=== PATIENT | female | born 1985 | race Caucasian/White ===

== ENCOUNTER 2017-04-24 17:58 | Emergency (ER) | payer BC ==
[~2017-04-24] VITALS: Ht 172.7 cm; Wt 97.5 kg
[~2017-04-24 17:58] MED LIST: ACET325 PO; ACET500 PO; ACET650SUP PR; ADVIL; ALPR.5 PO; AMOX500 PO; AMPDEX10CR PO; AMPDEX5 PO; BENZ100A PO; CARI350 PO; CIPR250 PO; CIPR500 PO; CONEST.625 PO; CONJUGATED ESTROGENS; CRUTCH3 UD; CRUTCH4 USE; CYCL10 PO; DIAZ2 PO; DIAZ5 PO; DIVA500EC PO; DOC250 PO; DOCU100 PO; DOXY100 PO; ESOM20; ESTR.1TPBW TOP; ESTR2 PO; ESTRADIOL PO; ESTROGEN; FISH1000 PO; FLUC150A PO; FLUO10 PO; FLUO20 PO; FLUP1 PO; GABA300 PO; GEODON; HYDACE5 PO; HYDMOR2 PO; HYDMOR4 PO; HYDPAM50 PO; HYDR1TAB94 PO; IBUP200 PO; IBUP400 PO; IBUP600 PO; IBUP800 PO; LAMO100 PO; LAMO25 PO; LAMO50 PO; LEVO750 PO; LORA1 PO; LORA2 PO; MEDR150I; META800 PO; METCAR500 PO; METPRE4DP PO; METR500 PO; MULVITA PO; MULVITMIND PO; MULVITMINE; Mobic15 MG PO; NAPR500 PO; NITR100CA PO; ONDA4 PO; ONDA4ODT MM; ORACONA PO; OXYACE5T PO; OXYACE7.5T PO; PRAZ5 PO; PROM25 PO; PROM25S PR; PROZAC; PROZAC 40 MG PO; Pyridium200 MG PO; RXCYCL10 PO; RXHYDMOR2 PO; RXOXYACE PO; RXPROM25S PR; RXTRAM50 PO; Robaxin-750750 MG PO; SERT50 PO; SULTRIDS PO; TRAACE PO; TRAM50 PO; UNISOM PO; Ultram50 MG PO; VARE1 PO; Vitamin A and D TOP; YASMIN; ZANAX; ZOLP10 PO; ZOLP5 PO; [UNRECOGNIZED DRUG - OTHER]; [UNRECOGNIZED DRUG - OTHER]; [UNRECOGNIZED DRUG - REMARK]; [UNRECOGNIZED DRUG - REMARK]
[2017-04-24] MEDS ORDERED: Crutch1 EACH MISC (19:18)
[2017-04-24] MEDS ORDERED: IBUP800 PO (19:18)
[2017-04-24] MEDS ORDERED: Ultram50 MG PO (19:18)
[2017-08-22] MEDS ORDERED: Ultram50 MG PO (17:59)
== END 2017-04-24 19:40 | disposition home or self-care (01) ==
LOC: ER 17:58
DX: S89.91XA Unspecified injury of right lower leg, initial encounter (principal); F41.9 Anxiety disorder, unspecified; Z91.018 Allergy to other foods; Z88.8 Allergy status to other drugs, medicaments and biological substances; Z91.040 Latex allergy status; Z79.899 Other long term (current) drug therapy; Z90.710 Acquired absence of both cervix and uterus; Z90.89 Acquired absence of other organs; W18.30XA Fall on same level, unspecified, initial encounter
CPT/HCPCS: 73562-RT; 96374; 96375; 99283; J1170; J1885; J2405

== ENCOUNTER 2018-05-21 17:11 | Emergency (ER) | payer BC ==
[~2018-05-21] VITALS: Ht 172.7 cm; Wt 95.2 kg
[~2018-05-21 17:11] MED LIST changes: +Crutch1 EACH MISC
[2018-05-21] MEDS ORDERED: Tylenol325 MG PO (18:28)
[2018-05-21] MEDS ORDERED: Ultram50 MG PO (18:46)
== END 2018-05-21 18:50 | disposition home or self-care (01) ==
LOC: ER 17:11
DX: M25.561 Pain in right knee (principal); Z88.8 Allergy status to other drugs, medicaments and biological substances; Z91.040 Latex allergy status; F17.210 Nicotine dependence, cigarettes, uncomplicated
CPT/HCPCS: 73564; 99283-25

== ENCOUNTER → 2023-04-07 | Outpatient (CLI) | payer BC ==
[~2023-04-07] MED LIST changes: +Tylenol325 MG PO
[2023-04-10 09:51] LABS: HEPATITIS B SURFACE ANTIBODY 14.66 IU/L
== END ==
LOC: LAB 17:48 → LAB SHORT 17:48
PROVIDERS: Family Medicine
DX: Z11.59 Encounter for screening for other viral diseases (principal)

== ENCOUNTER → 2023-06-14 | Outpatient (CLI) | payer BC | LOC: LAB SHORT 17:23 → LAB 17:23 | DX: N39.0 Urinary tract infection, site not specified (principal) | CPT/HCPCS: 87086 ==

== ENCOUNTER → 2024-09-25 | Outpatient (CLI) | payer OTHER ==
[~2024-09-25] MED LIST changes: +VENL25 PO
[2024-09-25 15:05] LABS: Mean Corpuscular HGB Conc 34.1 g/dL (31.5-36.5); Mean Corpuscular Volume 85 fL (80-100); Mean Platelet Volume 10.4 fL (9.1-12.4); Platelet Count 323 K/mm3 (150-400); RDW Coefficient Variation 12.9 % (11.7-14.2); RDW Standard Deviation 39.3 fL (35.1-46.3); Red Blood Cell Count 4.82 M/mm3 (3.80-5.20); White Blood Cell Count 7.96 K/mm3 (4.00-11.30)
[2024-09-25 15:18] LABS: Albumin, Blood 3.5 g/dL (3.4-5.0); Albumin/Globulin Ratio 0.9 (0.8-1.8); Bilirubin, Total 0.4 mg/dL (0.1-1.0); Bun/Creatinine Ratio 12.8 (12.0-20.0); Calcium, Blood 9.5 mg/dL (8.5-10.1); Creatinine, Blood 0.47 mg/dL (0.40-1.00); Globulin, Blood 3.7 g/dL (2.2-4.0); Potassium, Blood 3.8 mmol/L (3.5-5.5); Total Protein, Blood 7.2 g/dL (6.4-8.2)
[2024-09-25 16:44] LABS: BAND PERCENT MAN 1 % (0-8); BASOPHILS ABSOLUTE MAN 0.15 K/mm3 (0.00-0.23); BASOPHILS PERCENT MAN 2 % (0-2); EOSINOPHILS ABSOLUTE MAN 0.15 K/mm3 (0.00-0.68); EOSINOPHILS PERCENT MAN 2 % (0-6); LYMPHOCYTES % ATYPICAL MANUAL 1 % (0-0); LYMPHOCYTES PERCENT MAN 28 % (21-46); MONOCYTES ABSOLUTE MAN 0.63 K/mm3 (0.16-1.47); MONOCYTES PERCENT MAN 8 % (4-13); MYELOCYTE ABSOLUTE MAN 0.07 K/mm3 (0.00-0.00); MYELOCYTE PERCENT MAN 1 % (0-0); NEUTROPHILS ABSOLUTE MAN 4.61 K/mm3 (1.96-9.15); SEG NEUTROPHILS PERCENT MAN 57 % (41-73); TOTAL CELLS COUNTED 100
== END ==
LOC: LAB SHORT 13:27 → LAB 13:27
PROVIDERS: Nurse Practitioner
DX: R10.32 Left lower quadrant pain (principal)
CPT/HCPCS: 80053; 85007; 85027

== ENCOUNTER 2024-12-03 17:54 | Emergency (ER) | payer OTHER ==
[~2024-12-03] VITALS: Ht 165.1 cm; Wt 113.4 kg
[2024-12-03] MEDS ORDERED: Ketorolac Tromethamine 15mg Vial IV ONE (18:05)
[2024-12-03] MEDS ORDERED: Ondansetron HCl 2 MG / ML 2ML Vial IV ONE (18:10)
[2024-12-03] MEDS ORDERED: HYDROmorphone HCl/Pf 1MG SYR IV ONE (18:15)
[2024-12-03] MEDS ORDERED: Metoclopramide HCl 5MG / ML 2ML Vial IV ONE (18:15)
[2024-12-03 18:28] LABS: BASOPHILS ABSOLUTE AUTO 0.03 K/mm3 (0.00-0.23); BASOPHILS PERCENT AUTO 0 % (0-2); EOSINOPHILS ABSOLUTE AUTO 0.28 K/mm3 (0.00-0.68); EOSINOPHILS PERCENT AUTO 3 % (0-6); Hematocrit 48.7 % (33.0-51.0); Hemoglobin 16.5 g/dL (11.5-16.0); IMMATURE GRAN ABSOLUTE AUTO 0.03 K/mm3 (0.00-0.10); IMMATURE GRAN PERCENT AUTO 0 % (0-1); LYMPHOCYTES ABSOLUTE AUTO 2.13 K/mm3 (0.84-5.20); LYMPHOCYTES PERCENT AUTO 25 % (21-46); MONOCYTES ABSOLUTE AUTO 0.49 K/mm3 (0.16-1.47); MONOCYTES PERCENT AUTO 6 % (4-13); Mean Corpuscular HGB Conc 33.9 g/dL (31.5-36.5); Mean Corpuscular Volume 87 fL (80-100); NEUTROPHILS ABSOLUTE AUTO 5.46 K/mm3 (1.96-9.15); NEUTROPHILS PERCENT AUTO 65 % (41-73); NRBC ABSOLUTE 0.00 K/mm3 (0.00-0.02); NRBC Auto 0.0 /100 WBC (0.0-0.2); Platelet Count 286 K/mm3 (150-400); RDW Coefficient Variation 13.0 % (11.7-14.2); RDW Standard Deviation 40.5 fL (35.1-46.3)
[2024-12-03 18:50] LABS: Alanine Aminotransfer (ALT/SGP 134.0 U/L (12-78); Albumin, Blood 3.5 g/dL (3.4-5.0); Albumin/Globulin Ratio 0.9 (0.8-1.8); Anion Gap 4.0 mmol/L (3-11); Aspartate Aminotrans (AST/SGOT 97.0 U/L (12-37); Bilirubin, Total 0.4 mg/dL (0.1-1.0); Blood Urea Nitrogen 9.0 mg/dL (8-24); CO2, Blood 25.0 mmol/L (21-32); Calcium, Blood 9.3 mg/dL (8.5-10.1); Chloride, Blood 110.0 mmol/L (98-108); Creatinine, Blood 0.51 mg/dL (0.40-1.00); Globulin, Blood 4.1 g/dL (2.2-4.0); Glucose, Blood 119.0 mg/dL (70-99); Potassium, Blood 3.9 mmol/L (3.5-5.5); Sodium, Blood 135.0 mmol/L (136-145); Total Protein, Blood 7.6 g/dL (6.4-8.2)
[2024-12-03] MEDS ORDERED: NS 1,000 ML IV SCH (19:55)
[2024-12-03 20:14] LABS: Source, Urine Clean Catch
[2024-12-03 20:17] LABS: Bilirubin, Urine Neg (Neg); Glucose Qualitative, Urine Neg (Neg); Ketones, Urine Neg (Neg); Leukocyte Esterase, Urine Neg (Neg); Protein, Urine 2+ (Neg); Specific Gravity, Urine 1.010 (1.003-1.022); Urobilinogen, Urine NORM (Normal)
[2024-12-03 20:39] LABS: Color, Urine Yellow (P-Yellow)
[2024-12-03 20:41] LABS: Red Blood Cells, Urine 0-2 /hpf (0-2); White Blood Cells, Urine 0-2 /hpf (0-5)
[2024-12-03] MEDS ORDERED: OXAYDO5 M1 PO (20:43)
[2024-12-03] MEDS ORDERED: RX Prepack 6 Tabs Oxycodone 5mg UD ONE (20:50)
[2024-12-03 20:59] VITALS: BP 148/102
== END 2024-12-03 20:55 | disposition home or self-care (01) ==
LOC: ER 17:54
PROVIDERS: Student in an Organized Health Care Education/Training Program
DX: R10.32 Left lower quadrant pain (principal); G89.29 Other chronic pain; K57.30 Diverticulosis of large intestine without perforation or abscess without bleeding; E87.1 Hypo-osmolality and hyponatremia; F17.200 Nicotine dependence, unspecified, uncomplicated; Z90.710 Acquired absence of both cervix and uterus; Z90.49 Acquired absence of other specified parts of digestive tract; Z91.018 Allergy to other foods; Z88.8 Allergy status to other drugs, medicaments and biological substances; Z91.040 Latex allergy status; Z88.6 Allergy status to analgesic agent; Z79.899 Other long term (current) drug therapy
CPT/HCPCS: 74177; 80053; 81001; 83690; 85025; A9270; J1171; J1885; J2405; J2765; J7030; Q9967

== ENCOUNTER 2025-02-04 09:47 | Emergency (ER) | payer OTHER ==
[~2025-02-04] VITALS: Ht 167.6 cm; Wt 113.4 kg
[~2025-02-04 09:47] MED LIST changes: +OXAYDO5 M1 PO
[2025-02-04] MEDS ORDERED: HYDROmorphone HCl/Pf 1MG SYR IV ONE ×2 (10:15→12:45)
[2025-02-04 10:49] LABS: BASOPHILS ABSOLUTE AUTO 0.03 K/mm3 (0.00-0.23); BASOPHILS PERCENT AUTO 0 % (0-2); EOSINOPHILS ABSOLUTE AUTO 0.03 K/mm3 (0.00-0.68); EOSINOPHILS PERCENT AUTO 0 % (0-6); Hematocrit 45.4 % (33.0-51.0); Hemoglobin 15.2 g/dL (11.5-16.0); IMMATURE GRAN ABSOLUTE AUTO 0.05 K/mm3 (0.00-0.10); IMMATURE GRAN PERCENT AUTO 1 % (0-1); LYMPHOCYTES ABSOLUTE AUTO 1.21 K/mm3 (0.84-5.20); LYMPHOCYTES PERCENT AUTO 11 % (21-46); MONOCYTES ABSOLUTE AUTO 0.56 K/mm3 (0.16-1.47); MONOCYTES PERCENT AUTO 5 % (4-13); Mean Corpuscular HGB Conc 33.5 g/dL (31.5-36.5); Mean Corpuscular Volume 86 fL (80-100); NEUTROPHILS ABSOLUTE AUTO 8.70 K/mm3 (1.96-9.15); NEUTROPHILS PERCENT AUTO 82 % (41-73); NRBC ABSOLUTE 0.00 K/mm3 (0.00-0.02); NRBC Auto 0.0 /100 WBC (0.0-0.2); Platelet Count 384 K/mm3 (150-400); RDW Coefficient Variation 13.5 % (11.7-14.2); RDW Standard Deviation 41.8 fL (35.1-46.3)
[2025-02-04] MEDS ORDERED: ESTRADIOL (TWI1 EAC3 TD (10:57)
[2025-02-04] MEDS ORDERED: VENLAFAXINE HCL75 MG PO (10:57)
[2025-02-04 11:11] LABS: Alanine Aminotransfer (ALT/SGP 59.0 U/L (12-78); Albumin, Blood 3.8 g/dL (3.4-5.0); Albumin/Globulin Ratio 1.0 (0.8-1.8); Anion Gap 11.0 mmol/L (3-11); Aspartate Aminotrans (AST/SGOT 44.0 U/L (12-37); Bilirubin, Total 0.7 mg/dL (0.1-1.0); Blood Urea Nitrogen 9.0 mg/dL (8-24); CO2, Blood 24.0 mmol/L (21-32); Calcium, Blood 9.9 mg/dL (8.5-10.1); Chloride, Blood 107.0 mmol/L (98-108); Creatinine, Blood 0.53 mg/dL (0.40-1.00); Globulin, Blood 4.0 g/dL (2.2-4.0); Glucose, Blood 136.0 mg/dL (70-99); Potassium, Blood 4.2 mmol/L (3.5-5.5); Sodium, Blood 138.0 mmol/L (136-145); Total Protein, Blood 7.8 g/dL (6.4-8.2)
[2025-02-04 11:28] LABS: Source, Urine Clean Catch
[2025-02-04 11:33] LABS: Bilirubin, Urine Neg (Neg); Color, Urine Amber (P-Yellow); Glucose Qualitative, Urine Neg (Neg); Ketones, Urine Neg (Neg); Leukocyte Esterase, Urine 1+ (Neg); Protein, Urine 2+ (Neg); Specific Gravity, Urine 1.015 (1.003-1.022); Urobilinogen, Urine 1+ (Normal)
[2025-02-04] MEDS ORDERED: Morphine Sulfate 10 MG/ML 1MLSYR IV ONE (11:35)
[2025-02-04] MEDS ORDERED: MetroNIDAZOLE 500MG/NS 100 ml 100 ML IV ONE (13:05)
[2025-02-04] MEDS ORDERED: Ciprofloxacin 200MG/100ML 100 ML IV ONE (13:05)
[2025-02-04] MEDS ORDERED: Ciprofloxacin 400MG/D5 200ML 200 ML IV STA (13:22)
[2025-02-04] MEDS ORDERED: Atropine/Scopalam/Hyoscam/PB 5 ML UDC PO ONE (14:30)
[2025-02-04] MEDS ORDERED: TIZANIDINE HCL2 M1 PO (14:39)
[2025-02-04 15:00] VITALS: BP 123/110
== END 2025-02-04 15:18 | disposition home or self-care (01) ==
LOC: ER 09:47
PROVIDERS: Student in an Organized Health Care Education/Training Program
DX: K52.9 Noninfective gastroenteritis and colitis, unspecified (principal); R79.89 Other specified abnormal findings of blood chemistry; K57.90 Diverticulosis of intestine, part unspecified, without perforation or abscess without bleeding; F17.200 Nicotine dependence, unspecified, uncomplicated; Z91.018 Allergy to other foods; Z88.8 Allergy status to other drugs, medicaments and biological substances; Z91.040 Latex allergy status; Z88.6 Allergy status to analgesic agent; Z79.899 Other long term (current) drug therapy
CPT/HCPCS: 74177; 80053; 81001; 83605; 83690; 85025; 87086; 96361; 96365-59; 96375; 96376; 99285-25; A9270; J0744; J1171; J2270; J7120; Q9967

== ENCOUNTER 2025-02-07 17:49 | Emergency (ER) | payer OTHER ==
[~2025-02-07] VITALS: Ht 167.6 cm; Wt 113.4 kg
[~2025-02-07 17:49] MED LIST changes: +ESTRADIOL (TWI1 EAC3 TD; +TIZANIDINE HCL2 M1 PO; +VENLAFAXINE HCL75 MG PO
[2025-02-07] MEDS ORDERED: NS 1,000 ML IV SCH (18:20)
[2025-02-07] MEDS ORDERED: Ondansetron HCl 2 MG / ML 2ML Vial IV ONE (18:20)
[2025-02-07 18:25] LABS: BASOPHILS ABSOLUTE AUTO 0.04 K/mm3 (0.00-0.23); BASOPHILS PERCENT AUTO 0 % (0-2); EOSINOPHILS ABSOLUTE AUTO 0.15 K/mm3 (0.00-0.68); EOSINOPHILS PERCENT AUTO 1 % (0-6); Hematocrit 48.2 % (33.0-51.0); Hemoglobin 16.4 g/dL (11.5-16.0); IMMATURE GRAN ABSOLUTE AUTO 0.06 K/mm3 (0.00-0.10); IMMATURE GRAN PERCENT AUTO 1 % (0-1); LYMPHOCYTES ABSOLUTE AUTO 1.52 K/mm3 (0.84-5.20); LYMPHOCYTES PERCENT AUTO 13 % (21-46); MONOCYTES ABSOLUTE AUTO 0.44 K/mm3 (0.16-1.47); MONOCYTES PERCENT AUTO 4 % (4-13); Mean Corpuscular HGB Conc 34.0 g/dL (31.5-36.5); Mean Corpuscular Volume 84 fL (80-100); NEUTROPHILS ABSOLUTE AUTO 9.24 K/mm3 (1.96-9.15); NEUTROPHILS PERCENT AUTO 81 % (41-73); NRBC ABSOLUTE 0.00 K/mm3 (0.00-0.02); NRBC Auto 0.0 /100 WBC (0.0-0.2); Platelet Count 389 K/mm3 (150-400); RDW Coefficient Variation 13.2 % (11.7-14.2); RDW Standard Deviation 40.1 fL (35.1-46.3)
[2025-02-07 19:08] LABS: Alanine Aminotransfer (ALT/SGP 144.0 U/L (12-78); Albumin, Blood 4.1 g/dL (3.4-5.0); Albumin/Globulin Ratio 0.9 (0.8-1.8); Anion Gap 11.0 mmol/L (3-11); Aspartate Aminotrans (AST/SGOT 137.0 U/L (12-37); Bilirubin, Total 1.1 mg/dL (0.1-1.0); Blood Urea Nitrogen 9.0 mg/dL (8-24); CO2, Blood 22.0 mmol/L (21-32); Calcium, Blood 10.1 mg/dL (8.5-10.1); Chloride, Blood 107.0 mmol/L (98-108); Creatinine, Blood 0.47 mg/dL (0.40-1.00); Globulin, Blood 4.6 g/dL (2.2-4.0); Glucose, Blood 99.0 mg/dL (70-99); Potassium, Blood 3.8 mmol/L (3.5-5.5); Sodium, Blood 136.0 mmol/L (136-145); Total Protein, Blood 8.7 g/dL (6.4-8.2)
[2025-02-07] MEDS ORDERED: HYDROmorphone HCl/Pf 1MG SYR IV ONE (19:20)
[2025-02-07 21:27] LABS: Source, Urine Clean Catch
[2025-02-07 21:33] LABS: Bilirubin, Urine Neg (Neg); Glucose Qualitative, Urine Neg (Neg); Ketones, Urine Neg (Neg); Leukocyte Esterase, Urine Neg (Neg); Protein, Urine 1+ (Neg); Specific Gravity, Urine 1.010 (1.003-1.022); Urobilinogen, Urine NORM (Normal)
[2025-02-07 21:44] LABS: Color, Urine Pale Yellow (P-Yellow)
[2025-02-07 21:45] LABS: Red Blood Cells, Urine 0-2 /hpf (0-2); White Blood Cells, Urine Not Seen /hpf (0-5)
[2025-02-07 22:00] VITALS: BP 156/88
== END 2025-02-07 22:00 | disposition home or self-care (01) ==
LOC: ER 17:49
PROVIDERS: Student in an Organized Health Care Education/Training Program
DX: R10.32 Left lower quadrant pain (principal); G89.29 Other chronic pain; R91.1 Solitary pulmonary nodule; F17.200 Nicotine dependence, unspecified, uncomplicated; Z90.710 Acquired absence of both cervix and uterus; Z90.722 Acquired absence of ovaries, bilateral; Z91.040 Latex allergy status; Z88.6 Allergy status to analgesic agent; Z91.018 Allergy to other foods; Z88.8 Allergy status to other drugs, medicaments and biological substances; Z79.899 Other long term (current) drug therapy
CPT/HCPCS: 74177; 80053; 81001; 83690; 85025; 96361; 96374-59; 96375; 99284-25; J1171; J1790; J2405; J7030; Q9967